=== PATIENT | female | born 1995 | race Two or more races ===

== ENCOUNTER 2017-02-15 04:09 | Emergency (ER) | payer SELFPAY ==
[2017-02-15] MEDS ORDERED: NASAL DECONGEST30 M3 PO (04:17)
[2017-02-15] MEDS ORDERED: TESSALON PERLE100 M1 PO (04:17)
[2017-02-15] MEDS ORDERED: AMOXICILLIN875 M1 PO (04:38)
== END 2017-02-15 04:54 ==
LOC: EDMED 04:09
DX: H66.92 Otitis media, unspecified, left ear (principal)